=== PATIENT | female | born 1990 | race Caucasian/White ===

== ENCOUNTER 2020-05-24 10:22 | Emergency (ER) | payer OTHER ==
[2020-05-24] MEDS ORDERED: AMOX/K CLAV875 M1 PO (12:10)
[2020-05-24 13:24] VITALS: BP 118/65
== END 2020-05-24 13:27 | disposition home or self-care (01) | DRG 999 ==
LOC: ED 10:22
PROC: 0HQEXZZ Repair Left Lower Arm Skin, External Approach (ICD-10-PCS; principal; 2020-05-24)
DX: O9A.212 Injury, poisoning and certain other consequences of external causes complicating pregnancy, second trimester (principal); S52.602A Unspecified fracture of lower end of left ulna, initial encounter for closed fracture; S51.852A Open bite of left forearm, initial encounter; S60.571A Other superficial bite of hand of right hand, initial encounter; W54.0XXA Bitten by dog, initial encounter; Y93.89 Activity, other specified; Y92.009 Unspecified place in unspecified non-institutional (private) residence as the place of occurrence of the external cause; Z3A.00 Weeks of gestation of pregnancy not specified